=== PATIENT | female | born 2000 ===

== ENCOUNTER 2019-02-06 00:12 | Day surgery (SDC) | payer OTHER, BC ==
[~2019-02-06] VITALS: Ht 162.6 cm; Wt 69.9 kg
[~2019-02-06 00:12] MED LIST: ACET-1966 PO; ETHI1TAB3 PO; NAPR220T5 PO
[2019-02-06] MEDS ORDERED: ROCURONIUM BR 10 MG/ML 5 ML SY 5 ML ONE (12:29)
[2019-02-06] MEDS ORDERED: fentaNYL CITR 100 MCG/2 ML AMP ONE ×3 (12:29→16:08)
[2019-02-06 12:38] LABS: PLATELET COUNT, AUTOMATED 305 K/uL (150-450)
[2019-02-06 12:41] VITALS: BP 119/62
[2019-02-06] MEDS ORDERED: MIDAZOLAM 2 MG/2 ML VIAL IVP PRN (12:50)
[2019-02-06] MEDS ORDERED: LIDOCAINE/SOD BICARB 8.4% SYR ID ONE (12:50)
[2019-02-06] MEDS ORDERED: FAMOTIDINE 20 MG TAB PO ONE (12:50)
[2019-02-06] MEDS ORDERED: NORMOSOL R SOLN(*) 1000 ML BAG 1,000 ML IV PRN (12:50)
[2019-02-06] MEDS ORDERED: HALOPERIDOL LACT 5 MG/ML VIAL IM ONE (12:59)
[2019-02-06] MEDS ORDERED: LIDOCAINE MPF 1% 5 ML VIAL ONE (13:24)
[2019-02-06] MEDS ORDERED: DEXAMETHASONE SOD PHOS 10MG/ML ONE (13:24)
[2019-02-06] MEDS ORDERED: ONDANSETRON 4 MG/2 ML VIAL ONE (13:24)
[2019-02-06] MEDS ORDERED: PROPOFOL EMUL(*) 10MG/ML 20 ML 20 ML ONE (13:24)
[2019-02-06] MEDS ORDERED: KETOROLAC 30 MG/ML VIAL ONE (13:25)
[2019-02-06] MEDS ORDERED: KETAMINE HCL 200 MG/20 ML MDV ONE (13:25)
[2019-02-06] MEDS ORDERED: ROPIVACAINE 0.2% 20 ML VIAL ONE (13:52)
[2019-02-06] MEDS ORDERED: SUGAMMADEX SOD 200 MG/2 ML SDV ONE (14:13)
[2019-02-06] MEDS ORDERED: LR(*) 1000 ML BAG 1,000 ML IV ONE (15:49)
[2019-02-06] MEDS ORDERED: APAP/HYDROCODONE 325/5 TAB PO PRN (15:50)
--- NOTE | 2019-02-06 15:51 | Post Operative Note ---
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
[2019-02-06] MEDS ORDERED: LOR5/325 PO (15:52)
--- NOTE | 2019-02-06 15:54 | Short(Outpt) Discharge Summary ---
Discharge Summary Reason for Hosp/Final Diag: (1) Dermoid cyst of left ovary Status: Acute Hospital Course & Plan: s/p L-scope Left Oophorectomy Departure Discharge to: Home, Self Care Discharge Instructions Home Meds Active Scripts Hydrocodone Bit/Acetaminophen (HYDROCODON-ACETAMINOPHEN 5-325) 1 Each Tablet, 1- 2 EACH PO Q6H PRN for PAIN, #20 TAB 0 Refills Prov:TOMAS TYLER MD 02/06/19 Reported Medications Naproxen Sodium (MIDOL) 220 Mg Tablet, 220 MG PO 2XW PRN for PAIN 02/04/19 Acetaminophen (TYLENOL) 325 Mg Tablet, 325 MG PO PRN PRN for PAIN, TAB 02/04/19 Ethinyl Estradiol/Drospirenone (MONI 28 TABLET) 1 Each Tablet, 1 EACH PO QDAY, TAB 02/04/19 Follow up Referrals: [facility] - In Two Weeks @ [facility] with TOMAS TYLER MD Diet: Regular Activity: As Tolerated, No Heavy Lifting, No Exertion Copies to: TOMAS TYLER MD ; TOMAS TYLER MD Feb 06, 2019 15:54
[2019-02-06] MEDS ORDERED: PROMETHAZINE 25 MG/ML 1 ML AMP ONE (16:56)
[2019-02-06 16:57] VITALS: BP 99/63
[2019-02-06] MEDS ORDERED: APAP/HYDROCODONE 325/5 TAB ONE (17:14)
--- NOTE | 2019-02-06 23:22 | OPERATIVE REPORT 1 ---
EVENT DATE: February 06, 2019 SURGEON: Abdi Hughes MD ANESTHESIOLOGIST: Liban Erickson MD ANESTHESIA: General endotracheal anesthesia. PREOPERATIVE DIAGNOSIS Left ovarian cyst. POSTOPERATIVE DIAGNOSIS Left dermoid ovarian cyst. PROCEDURES PERFORMED 1. Diagnostic laparoscopy. 2. Laparoscopic left oophorectomy. ESTIMATED BLOOD LOSS Minimal. FLUIDS IV crystalloid. FINDINGS Upon inspecting the pelvis, the left ovary was noted to be enlarged with the cystic area mostly encased within the stroma of the ovary. There was a more translucent portion of the cyst that was projecting out the proximal end of the ovary that did appear to have a clear fluid within. Upon entering that cyst for drainage, there was a straw-like fluid that was drained out of the cyst. This more translucent appendage of the ovarian cyst was excised, taken out, and inspected, and the ovarian cyst wall did not appear to dissect away easily from the stroma of the ovary. There was also noted to be hair and fat within this cyst, confirming the diagnosis of a dermoid cyst. It had all the appearances of a benign dermoid cyst. Within the ovary, the cyst continued to project along internally within the ovary itself, and it was not amenable to easy excision of the cyst only. Therefore, it was decided that an oophorectomy was the most appropriate procedure. Normal-appearing right ovary and tube. Normal-appearing uterus. PROCEDURE IN DETAIL The patient was brought to the operating room with a working IV, placed in the dorsal supine position, and placed under general endotracheal anesthesia. She was moved to the dorsal lithotomy position and prepped and draped in the usual sterile fashion. A weighted speculum was placed in the vagina. The cervix was grasped on the anterior lip with a single-toothed tenaculum. The uterus was sounded to a depth of 8 cm anteverted. The cervix was carefully dilated to accommodate an 8 cm ARIANA uterine manipulator. It was selected, assembled, passed through the cervix into the uterus, bulb inflated and secured, and all other instruments were then removed. The bladder had been drained at preparation. Legs were brought back to the supine position, and gloves were changed. The umbilicus was then infiltrated with 0.2% Naropin, and a 5 mm stab incision was made. A Veress needle was passed through this incision into the abdomen while elevating and stabilizing the anterior abdominal wall. A pneumoperitoneum was created to an intra-abdominal pressure of 20 mmHg. This was then reduced to 15 mmHg once entry had been gained by all ports. The Veress needle was then removed, and through the laparoscope, a 5 mm bladeless trocar was passed through this incision under direct visualization and without incident. Two additional 5 mm ports were placed suprapubically and in the left lower quadrant under a similar technique and under direct visualization. Through these ports, initial instruments were passed including a Genicon and a monopolar scissors. The translucent portion of the left ovary after elevating the uterus and creating adequate exposure was punctured with the monopolar scissors. No electrocautery was used, and a straw-like fluid was drained out of this cyst. This was suctioned out and irrigated, and the ovary was again inspected. This translucent portion of the cyst was opened up further in order to see if I could easily dissect out the cyst wall, but it did not appear to peel away from the stroma of the ovary very well. Therefore, I elected to amputate this portion of the cyst and inspect it grossly in order to get a better idea of what the nature of the cyst was. The LigaSure device was then used to cauterize and transect this translucent portion of the cyst; therefore, a partial amputation of the left ovary was performed here including the cyst wall. This was removed through the suprapubic port, and inspection grossly was performed, revealing the densely adherent cyst wall, hair and fat contained within this cyst, consistent with a dermoid. Therefore, reinspection of the remaining ovary revealed a large cavity within this left ovary with different protrusions into this cavity, and all surrounding the cyst were significantly dense ovarian stroma and ovary, making it virtually impossible to dissect open this cyst and remove only the cyst wall. It was, therefore, deemed necessary to perform a left oophorectomy. The left infundibulopelvic ligament was identified, and the left ovary was put on medial stretch. Using the LigaSure device, the ovary was cauterized at the IP ligament medial to the fallopian tube and carefully dissected away from its pelvic attachment. Once free, it was laid into the posterior cul-de-sac, and the suprapubic port was removed and replaced with a 10 mm port. An Endo Pouch was then used to retrieve this ovary, and it was taken up through the suprapubic incision. However, the ovary was too big in order to be removed from this spot. Therefore, a scalpel was used to extend the skin incision and the fascial incision where I was able with also the assistance of some blunt dissection manually. Once this had been performed, the Endo Pouch was retrieved up to the surface and opened, and the ovary itself was grasped with a Chloe. It was twisted about while it was carefully withdrawn. While we were removing it, a large amount of fatty material exuded from the cyst and had the appearance visibly of fat, further confirming a mature teratoma diagnosis. The ovary was sent to Pathology within the Endo Pouch. Pelvis was copiously irrigated with saline and suctioned dry. The suprapubic port location was closed first with an 0 Vicryl using a suture Endo Close device, followed by copious irrigation of the subcuticular space, and closing the space with a 2-0 Vicryl, followed by closure of the skin incision with a 4-0 Monocryl simple subdermal. The remaining pneumoperitoneum was suctioned out, and all instruments were removed from the abdomen. The remaining 5 mm incisions were repaired with 4-0 Monocryl simple subdermal and covered with Dermabond skin adhesive. The ARIANA manipulator was removed. She was awakened and returned to the dorsal supine position and taken to recovery in stable condition. Sponge, lap, instrument, and needle counts were all correct times three. THOMAS
== END 2019-02-06 16:57 | disposition home or self-care (01) ==
LOC: OR 00:12
PROVIDERS: ATTEND Obstetrics & Gynecology
DX: D27.1 Benign neoplasm of left ovary (principal)
CPT/HCPCS: 58661; 84703; 85025; 88305; J1100; J1630; J1885; J2001; J2250; J2405; J2704; J2795; J3010; J3490